=== PATIENT | male | born 1995 | race Caucasian/White ===

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

== ENCOUNTER 2022-07-07 01:38 | Emergency (ER) | payer OTHER ==
[~2022-07-07] VITALS: Ht 167.6 cm; Wt 69.5 kg
[~2022-07-07 01:38] MED LIST: IBUP-1022 PO
[2022-07-07 01:39] VITALS: BP 141/80
== END 2022-07-07 04:24 | disposition left against medical advice (07) ==
LOC: M ED 01:38
DX: F32.A Depression, unspecified (principal); Z53.20 Procedure and treatment not carried out because of patient's decision for unspecified reasons; F17.290 Nicotine dependence, other tobacco product, uncomplicated

== ENCOUNTER 2023-03-26 07:35 | Inpatient (IN) | payer MEDICAID, OTHER ==
[~2023-03-26] VITALS: Ht 182.9 cm; Wt 70.5 kg
[2023-03-26] MEDS ORDERED: MED REC IN PROGRESS XX SCH (08:40)
[2023-03-26] MEDS ORDERED: MED REC CURRENTLY UNOBTAINABLE XX SCH (09:15)
[2023-03-26 09:18] LABS: HEMATOCRIT 42.8 % (42.0-52.0); HEMOGLOBIN 14.5 g/dl (13.5-17.5); MEAN CORPUSCULAR HEMOGLOBIN 30.8 pg (27.0-33.0); MEAN CORPUSCULAR HGB CONC 33.9 g/dl (32.0-36.5); MEAN CORPUSCULAR VOLUME 90.9 fl (80.0-96.0); PLATELET COUNT, AUTOMATED 261 10^3/uL (150-450); RED BLOOD COUNT 4.71 10^6/uL (4.30-6.10)
[2023-03-26 09:44] LABS: ETHYL ALCOHOL (ETHANOL) < 0.003 % (0.000-0.010)
[2023-03-26 09:46] LABS: ACETAMINOPHEN LEVEL < 2.0 UG/ML (10.0-20.0); ALBUMIN 4.6 G/DL (3.2-5.2); ALKALINE PHOSPHATASE 50 U/L (46-116); ALT/SGPT 20 U/L (7.0-40); AST/SGOT 34 U/L (<34); BILIRUBIN,DIRECT 0.3 MG/DL (<0.4); BILIRUBIN,TOTAL 0.7 MG/DL (0.3-1.2); BLOOD UREA NITROGEN 22 MG/DL (9-23); CALCIUM LEVEL 9.5 MG/DL (8.5-10.1); CARBON DIOXIDE LEVEL 30 MMOL/L (20-31); CHLORIDE LEVEL 107 MMOL/L (98-107); CREATININE FOR GFR 0.85 MG/DL (0.70-1.30); GLOMERULAR FILTRATION RATE > 60.0 (>60); GLUCOSE, FASTING 109 MG/DL (60-100); POTASSIUM SERUM 3.7 MMOL/L (3.5-5.1); SALICYLATE LEVEL < 3.0 MG/DL (<30); SODIUM LEVEL 142 MMOL/L (136-145); TOTAL PROTEIN 7.4 G/DL (5.7-8.2)
[2023-03-26 09:48] LABS: THYROID STIMULATING HORMONE 0.865 uIU/ML (0.55-4.78)
[2023-03-26 12:13] LABS: BARBITURATES URINE NEGATIVE (NEGATIVE); BENZODIAZEPINES URINE NEGATIVE (NEGATIVE); COCAINE METABOLITE URINE NEGATIVE (NEGATIVE); METHADONE URINE NEGATIVE (NEGATIVE); OPIATES URINE NEGATIVE (NEGATIVE); PHENCYCLIDINE URINE NEGATIVE (NEGATIVE)
[2023-03-26 12:18] LABS: AMPHETAMINES LEVEL URINE POSITIVE (NEGATIVE); CANNABINOIDS URINE POSITIVE (NEGATIVE)
[2023-03-26] MEDS ORDERED: CLON1TAB8 PO (17:11)
[2023-03-26] MEDS ORDERED: ADDE20TA PO (17:11)
[2023-03-26] MEDS ORDERED: FLUO40CA PO (17:11)
[2023-03-26] MEDS ORDERED: ADDERALL 5 MG TAB PO SCH ×2 (17:30→18:00)
[2023-03-26] MEDS ORDERED: FLUoxetine 20MG CAP PO SCH (17:30)
[2023-03-26] MEDS ORDERED: MUPI2OI TOP (17:53)
[2023-03-26] MEDS ORDERED: HOME MED LIST COMPLETE! XX SCH (18:00)
[2023-03-26] MEDS: clonazePAM 1 MG TAB PO SCH ×2 (18:06→21:00)
[2023-03-26] MEDS ORDERED: NICOTINE 7 MG/24 HR TRANSDERMAL TD ONE (21:10)
[2023-03-26] MEDS ORDERED: NICOTINE 14 MG/24 HR TRANSDERMAL TD ONE (21:20)
[2023-03-26] MEDS ORDERED: ACETAMINOPHEN TAB 650MG DOSE (2X325MG) PO PRN (22:30)
[2023-03-26] MEDS ORDERED: MAALOX 30 ML SUSP *UDC PO PRN (22:30)
[2023-03-26] MEDS ORDERED: traZODone 50 MG TAB PO PRN (22:30)
[2023-03-26] MEDS ORDERED: diphenhydrAMINE 25MG CAP PO PRN (22:30)
[2023-03-26] MEDS ORDERED: MOM 30ML SUSPENSION UDC PO PRN (22:30)
[2023-03-27 00:27] VITALS: BP 132/78; TEMP 96; O2SAT 100
[2023-03-27 06:13] VITALS: BP 108/60; TEMP 97.7; O2SAT 99
[2023-03-27] MEDS ORDERED: ADDERALL 5 MG TAB PO SCH ×2 (09:00→14:00)
[2023-03-27] MEDS: NICOTINE 14 MG/24 HR TRANSDERMAL TD SCH (09:37)
[2023-03-27] MEDS ORDERED: FLUoxetine 20MG CAP PO SCH (16:00)
[2023-03-27] MEDS: clonazePAM 1 MG TAB PO SCH ×3 (16:09→22:21)
[2023-03-27 17:59] VITALS: BP 121/69; TEMP 99; O2SAT 100
[2023-03-28 06:28] VITALS: BP 112/56; TEMP 97.3; O2SAT 100
[2023-03-28] MEDS ORDERED: ADDERALL 20 MG PO SCH (08:00)
[2023-03-28] MEDS: clonazePAM 1 MG TAB PO SCH ×3 (08:34→21:00)
[2023-03-28] MEDS: NICOTINE 14 MG/24 HR TRANSDERMAL TD SCH (08:34)
[2023-03-28] MEDS: FLUOXETINE 40 MG PO SCH (08:35)
[2023-03-28] MEDS: ADDERALL 20 MG PO SCH ×3 (10:19→15:15)
[2023-03-28 16:15] VITALS: BP 131/81; TEMP 98.2; O2SAT 98
[2023-03-29 06:21] VITALS: BP 114/57; TEMP 97.3; O2SAT 100
[2023-03-29] MEDS: NICOTINE 14 MG/24 HR TRANSDERMAL TD SCH ×2 (07:35→08:35)
[2023-03-29] MEDS: clonazePAM 1 MG TAB PO SCH ×3 (07:36→20:45)
[2023-03-29] MEDS: FLUOXETINE 40 MG PO SCH (07:36)
[2023-03-29] MEDS: ADDERALL 20 MG PO SCH ×2 (08:34→13:10)
[2023-03-29] MEDS: NICOTINE 21MG/24HR 1 EA TRANSDERMAL TD SCH (15:50)
[2023-03-29 18:20] VITALS: BP 126/82; TEMP 98.3; O2SAT 100
[2023-03-30] MEDS: NICOTINE 21MG/24HR 1 EA TRANSDERMAL TD SCH (09:00)
[2023-03-30] MEDS ORDERED: NICOTINE 21MG/24HR 1 EA TRANSDERMAL TD SCH (09:00)
[2023-03-30] MEDS: clonazePAM 1 MG TAB PO SCH (09:00)
[2023-03-30] MEDS: ADDERALL 20 MG PO SCH (10:10)
[2023-03-30] MEDS: FLUOXETINE 40 MG PO SCH (10:11)
[2023-03-30] MEDS ORDERED: FLUO40CA PO (10:51)
[2023-03-30] MEDS ORDERED: NICO21PAT TD (10:51)
== END 2023-03-30 11:55 | disposition home or self-care (01) | DRG 753 ==
LOC: M ED 07:35 → M ED INP 22:26 → M PSY 23:22
PROVIDERS: ADMIT Student in an Organized Health Care Education/Training Program; ATTEND Student in an Organized Health Care Education/Training Program
DX: F32.89 Other specified depressive episodes (principal); F41.8 Other specified anxiety disorders; Z63.8 Other specified problems related to primary support group; L02.425 Furuncle of right lower limb; F17.210 Nicotine dependence, cigarettes, uncomplicated; Z63.79 Other stressful life events affecting family and household; Z88.8 Allergy status to other drugs, medicaments and biological substances; Z79.899 Other long term (current) drug therapy